=== PATIENT | female | born 1995 | race Caucasian/White ===

== ENCOUNTER 2021-08-17 08:01 | Emergency (ER) | payer BC ==
--- NOTE | 2021-08-17 08:05 | EDM.PDOC ---
<Jodi Baxter - Last Filed: 08/17/21 09:11> ED HPI GENERAL MEDICAL PROBLEM - General Chief Complaint: Cardiovascular Problem Stated Complaint: cardiac Time Seen by Provider: 08/17/21 08:04 - Related Data Allergies Allergy/AdvReac Type Severity Reaction Status Date / Time codeine Allergy Nausea and Verified 08/17/21 09:13 Vomiting Home Meds: Home Meds . [No Known Home Meds] 08/17/21 [History] Departure - Departure Disposition: Home, Self-Care 01 Clinical Impression: Non-cardiac chest pain Instructions: Nonspecific Chest Pain, Adult, [id number] Referrals: Jodi Baxter MD [Physician] - Forms: ED Department Discharge Additional Instructions: If symptoms return try some OTC Maalox Mylanta or Gaviscon. If this does not resolve it recheck at that time. Return to the ED if new or worsening symptoms. Follow up with PCP in the next 4-6 days if any concerns or recurrent issues. <Odell Hernandez - Last Filed: 08/17/21 10:35> ED HPI GENERAL MEDICAL PROBLEM - General Source of Information: Reports: Patient History Limitations: Reports: No Limitations - History of Present Illness INITIAL COMMENTS - FREE TEXT/NARRATIVE: Patient comes emergency department today from home with concerns of midsternal chest pain. This patient has a history of pericarditis many years ago awoke approximately 4:00 this morning rather suddenly with sharp shooting stabbing intermittent midsternal chest pain. This is very different than her pericarditis symptoms that she had in the past. She has felt well over the past couple of days. She has had no fever chills cough or congestion. No weakness dizziness lightheadedness. No palpitations syncope. She has had no recent falls trauma or injury to her chest. She has no abdominal pain nausea or vomiting. No hematuria dysuria urinary frequency. No black tarry stools. No long stents of travel sitting. Sedentary lifestyle or recent surgeries. No history of coagulopathies or blood clots. Actually upon arrival her symptoms have completely resolved and she is asymptomatic. ED ROS GENERAL - Review of Systems Review Of Systems: Comprehensive ROS is negative, except as noted in HPI. ED EXAM, GENERAL - Physical Exam Exam: See Below Exam Limited By: No Limitations General Appearance: Alert, WD/WN, No Apparent Distress, Anxious Eye Exam: Bilateral Eye: EOMI, PERRL Ears: Normal External Exam, Normal TMs Nose: Normal Inspection, Normal Mucosa Throat/Mouth: Normal Inspection, Normal Lips, Normal Voice Head: Atraumatic, Normocephalic Neck: Normal Inspection, Supple, Non-Tender, Full Range of Motion Respiratory/Chest: No Respiratory Distress, Lungs Clear, Normal Breath Sounds, No Accessory Muscle Use, Chest Non-Tender Cardiovascular: Normal Peripheral Pulses, Regular Rate, Rhythm GI/Abdominal: Normal Bowel Sounds, Soft, Non-Tender (Female) Exam: Deferred Rectal (Female) Exam: Deferred Back Exam: Normal Inspection Extremities: Normal Inspection, No Pedal Edema, Normal Capillary Refill Neurological: Alert, Oriented, CN II-XII Intact, No Motor/Sensory Deficits Psychiatric: Normal Affect, Normal Mood Skin Exam: Warm, Dry, Intact, Normal Color, No Rash Course - Vital Signs Last Recorded V/S: Last Vital Signs Temp 99.1 F 08/17/21 09:30 Pulse 92 08/17/21 09:30 Resp 17 08/17/21 09:30 BP 119/68 08/17/21 09:30 Pulse Ox 100 08/17/21 09:30 - Orders/Labs/Meds Orders: Active Orders 24 hr Category Date Time Status Up ad Tuyet [RC] ASDIRECTED Care 08/17/21 08:29 Active Vital Signs [RC] We@0800 Care 08/17/21 08:29 Active Nothing per Oral Now Diet [DIET] Diet 08/17/21 Breakfast Active Resuscitation Status Routine Resus Stat 08/17/21 08:29 Ordered Labs: Laboratory Tests 08/17/21 08/17/21 08/17/21 Range/Units 08:42 08:42 08:42 WBC 8.9 (4.0-10.2) K/uL RBC 4.40 (3.77-5.09) M/uL Hgb 13.2 (11.7-15.5) g/dL Hct 39.4 (34.0-46.0) % MCV 89.5 (84.0-98.0) fL MCH 30.0 (28.2-33.3) pg MCHC 33.5 (31.7-36.0) g/dL RDW 12.3 (11.2-14.1) % Plt Count 251 (150-350) K/uL Neut % (Auto) 73.4 (45.0-80.0) % Lymph % (Auto) 15.5 (10.0-50.0) % [place] % (Auto) 10.6 (2.0-14.0) % Eos % (Auto) 0.4 (0.0-5.0) % Baso % (Auto) 0.1 (0.0-2.0) % Neut # (Auto) 6.55 (1.40-7.00) K/uL Lymph # (Auto) 1.38 (0.50-3.50) K/uL [place] # (Auto) 0.95 (0.00-1.00) K/uL Eos # (Auto) 0.04 (0.00-0.50) K/uL Baso # (Auto) 0.01 (0.00-0.20) K/uL Sodium 142 (136-145) mmol/L Potassium 4.1 (3.5-5.1) mmol/L Chloride 108 H (98-107) mmol/L Carbon Dioxide 25.2 (21.0-32.0) mmol/L Anion Gap 12.9 (7-15) meq/L BUN 11 (7-18) mg/dL Creatinine 0.82 (0.51-1.17) mg/dL Est Cr Clr Drug Dosing 98.18 mL/min Estimated GFR (MDRD) > 60 mL/min Glucose 105 H (70-99) mg/dL Calcium 9.0 (8.5-10.1) mg/dL Total Bilirubin 0.5 (0.2-1.0) mg/dL AST 11 L (15-37) U/L ALT 16 (12-78) U/L Alkaline Phosphatase 57 (46-116) IU/L Troponin I High Sens 9 (<=51) ng/L Total Protein 7.1 (6.4-8.2) g/dL Albumin 3.9 (3.4-5.0) g/dL HCG, Qual Negative (NEGATIVE) Meds: Medications Discontinued Medications Generic Name Dose Route Start Last Admin Trade Name Freq PRN Reason Stop Dose Admin Lactated Ringer's 1,000 mls @ 999 mls/hr 08/17/21 08:29 08/17/21 08:41 Ringers, Lactated IV 08/17/21 09:29 999 mls/hr .BOLUS ONE Administration - Re-Assessments/Exams Free Text/Narrative Re-Assessment/Exam: 08/17/21 10:34 EKG initially reviewed extemporaneously by myself shows no ST elevation or d epression. Her laboratory evaluation is rather unremarkable with a negative troponin. hCG is negative. The patient continues to be asymptomatic. As of note her symptoms resolved on their own prior to arrival in the emergency department. I am unsure of what caused her sharp shooting stabbing intermittent midsternal chest pain. Could be either heartburn and/or anxiety in relation. At this time I do not find anything acutely urgent or emergent. And she is asymptomatic without therapy. She has no risk factors. We will discharge her home. Have her follow-up if any recurrent symptoms or concerns. She is comfortable with this plan and her questions are answered. Departure - Departure Time of Disposition: 10:06 Sepsis Event Note (ED) - Focused Exam Vital Signs: Vital Signs Temp Pulse Resp BP Pulse Ox 08/17/21 09:30 99.1 F 92 17 119/68 100 08/17/21 09:15 88 17 118/75 100 08/17/21 09:00 89 20 08/17/21 08:45 91 19 114/66 100 08/17/21 08:30 88 17 119/79 100 08/17/21 08:15 96 16 118/67 100 08/17/21 08:06 99 F 87 20 132/90 100
[2021-08-17] MEDS: Lactated Ringers 1,000 ML IV ONE (08:41)
[2021-08-17 09:11] LABS: CHLORIDE,CL 108 mmol/L (98-107); SODIUM,NA 142 mmol/L (136-145)
--- NOTE | 2021-08-17 09:11 | PCM.EKG ---
#1 Interpretation EKG Date: 08/17/21 Rhythm: NSR [place]: Normal P-Wave: Present QRS: Normal ST-T: Normal QT: Normal Comparison: NA - No Prior EKG
[2021-08-17 09:36] LABS: ANION GAP 12.9 meq/L (7-15)
== END 2021-08-17 10:22 | disposition home or self-care (01) ==
LOC: LL.ED 08:01
DX: R07.2 Precordial pain (principal); Z88.5 Allergy status to narcotic agent
CPT/HCPCS: 36415; 80053; 84484; 84703; 85025; 93005; 99285; J7120